=== PATIENT | male | born 1995 | race African-American/Black ===

== ENCOUNTER 2017-08-03 19:57 | Inpatient (IN) | payer OTHER ==
[~2017-08-03] VITALS: Ht 160 cm; Wt 99.0 kg
[2017-08-03 20:17] VITALS: BP 160/97; TEMP 98.8
[2017-08-03] MEDS ORDERED: METFORMIN HYDR500 MG PO (20:22)
[2017-08-03 20:59] LABS: PLATELET COUNT 320 K/uL (142-355)
[2017-08-03 21:04] LABS: POTASSIUM 3.7 mmol/L (3.6-5.2)
[2017-08-04] VITALS (21 sets, daily range): BP systolic 119–160; BP diastolic 62–100; TEMP 92.6–98.8; Ht 160 cm; Wt 99.0 kg
[2017-08-04 05:05] LABS: POTASSIUM 3.9 mmol/L (3.6-5.2)
[2017-08-05] VITALS (15 sets, daily range): BP systolic 109–149; BP diastolic 61–95; TEMP 97.3–98.4
[2017-08-05 06:36] LABS: PLATELET COUNT 276 K/uL (142-355)
[2017-08-05 06:51] LABS: POTASSIUM 3.7 mmol/L (3.6-5.2)
[2017-08-06 00:17] VITALS: BP 106/70; TEMP 98.6
[2017-08-06 04:45] VITALS: BP 109/58; TEMP 98.8
[2017-08-06 06:22] LABS: PLATELET COUNT 281 K/uL (142-355)
[2017-08-06 10:23] LABS: POTASSIUM 3.4 mmol/L (3.6-5.2)
[2017-08-06 20:00] VITALS: BP 115/75; TEMP 98.7
[2017-08-07 04:00] VITALS: BP 99/55; TEMP 97.5
[2017-08-07 06:31] LABS: PLATELET COUNT 289 K/uL (142-355)
[2017-08-07 08:47] VITALS: BP 102/54; TEMP 97.6
== END 2017-08-07 15:04 | disposition home or self-care (01) | DRG 639 ==
LOC: ED 19:57 → ICU 21:35 → MED/SURG 08-05 14:30
PROVIDERS: Specialist
DX: E11.10 Type 2 diabetes mellitus with ketoacidosis without coma (principal); Z79.4 Long term (current) use of insulin; R94.5 Abnormal results of liver function studies
CPT/HCPCS: 36415; 36600; 80048; 80053; 81000; 81002; 82805; 82948; 82962; 83036; 83735; 84100; 84443; 85027; 96361; 96365; 96372; 96375; 99285; J1650; J1815; J3490